=== PATIENT | male | born 2000 | race African-American/Black ===

== ENCOUNTER 2018-06-03 20:39 | Emergency (ER) | payer SELFPAY ==
--- NOTE | 2018-06-03 20:50 | PDOC ---
History of Present Illness - General Stated Complaint: dislocated right knee Time Seen by Provider: 06/03/18 20:48 - History of Present Illness Initial Comments: 06/03/18 20:48 The patient denies chest pain, shortness of breath, headache and dizziness. Denies fever, chills, nausea, vomit, diarrhea and constipation. Denies dysuria, frequency, urgency and hematuria. Past History - Past Medical History Allergies/Adverse Reactions: Allergies Allergy/AdvReac Type Severity Reaction Status Date / Time No Known Allergies Allergy Verified 05/01/11 00:16 Home Medications: Ambulatory Orders Acetaminophen W/ Codeine #3 [Tylenol # 3] 1 combo PO Q4H PRN #14 tablet Asthma: Yes - Immunization History Immunization Up to Date: Yes - Suicide/Smoking/Psychosocial Hx Smoking Status: No Number of Cigarettes Smoked Daily: 0 Review of Systems - Review of Systems Comments:: 06/03/18 20:49 GENERAL/CONSTITUTIONAL: No fever or chills. No weakness. HEAD, EYES, EARS, NOSE AND THROAT: No change in vision. No ear pain or discharge. No sore throat. CARDIOVASCULAR: No chest pain or shortness of breath RESPIRATORY: No cough, wheezing, or hemoptysis. GASTROINTESTINAL: No nausea, vomiting, diarrhea or constipation. GENITOURINARY: No dysuria, frequency, or change in urination. MUSCULOSKELETAL: No joint or muscle swelling or pain. No neck or back pain. SKIN: No rash NEUROLOGIC: No headache, vertigo, loss of consciousness, or change in strength/ sensation. ENDOCRINE: No increased thirst. No abnormal weight change HEMATOLOGIC/LYMPHATIC: No anemia, easy bleeding, or history of blood clots. ALLERGIC/IMMUNOLOGIC: No hives or skin allergy. *Physical Exam - Physical Exam Comments: 06/03/18 20:50 GENERAL: Awake, alert, and fully oriented, in no acute distress HEAD: No signs of trauma, normocephalic, atraumatic EYES: PERRLA, EOMI, sclera anicteric, conjunctiva clear ENT: Auricles normal inspection, hearing grossly normal, nares patent, oropharynx clear without exudates. Moist mucosa NECK: Normal ROM, supple, no lymphadenopathy, JVD, or masses LUNGS: No distress, speaks full sentences, clear to auscultation bilaterally HEART: Regular rate and rhythm, normal S1 and S2, no murmurs, rubs or gallops, peripheral pulses normal and equal bilaterally. ABDOMEN: Soft, nontender, normoactive bowel sounds. No guarding, no rebound. No masses EXTREMITIES: Normal inspection, Normal range of motion, no edema. No clubbing or cyanosis. NEUROLOGICAL: Cranial nerves II through XII grossly intact. Normal speech, normal gait, no focal sensorimotor deficits SKIN: Warm, Dry, normal turgor, no rashes or lesions noted.
[2018-06-03 21:09] VITALS: BMI 27.1
--- NOTE | 2018-06-03 21:18 | PDOC ---
History of Present Illness - General Stated Complaint: dislocated right knee Time Seen by Provider: 06/03/18 20:48 - History of Present Illness Initial Comments: 18yo M with PMH of asthma and intermittent knee pain (since age 9) presenting with knee pain. Patient's mother and aunt are at the bedside providing collateral history. Patient states he was getting off his bed yesterday when he felt severe 10/10 pain in his knee such that he cannot bear weight on it as it hurts too much. He had knee pain for the first time at age 9 when he fell down the stairs. According to his mother, he was medically evaluated and "they couldn 't find anything wrong." Since that time, patient has had three other instances of acute knee pain that would resolve with rest. He has not been evaluate by an orthopedist since age 9. Patient has not taken anything for his pain. He is requesting a note for work. No fevers, chills, chest pain, or shortness of breath. Orthopedist: does not know Past History - Past Medical History Allergies/Adverse Reactions: Allergies Allergy/AdvReac Type Severity Reaction Status Date / Time No Known Allergies Allergy Verified 06/03/18 21:09 Home Medications: Ambulatory Orders Ibuprofen [Motrin -] 600 mg PO Q6H PRN #90 tablet 06/03/18 Asthma: Yes - Immunization History Immunization Up to Date: Yes - Suicide/Smoking/Psychosocial Hx Smoking Status: No Smoking History: Never smoked Have you smoked in the past 12 months: No Number of Cigarettes Smoked Daily: 0 Information on smoking cessation initiated: No Hx Alcohol Use: No Drug/Substance Use Hx: No Review of Systems - Review of Systems Comments:: Constitutional: no fever, no chills HEENT: no vision changes, no dysphagia Cardiovascular: no chest pain, no palpitations Respiratory: no cough, no shortness of breath Gastrointestinal: no abdominal pain, no nausea Genitourinary: no dysuria, no frequency Musculoskeletal: no back pain, +knee pain Skin: no rash, no itching Neurologic: no headache, no weakness *Physical Exam - Vital Signs Last Vital Signs Temp Pulse Resp BP Pulse Ox 98.1 F 70 19 144/78 98 06/03/18 20:39 06/03/18 20:39 06/03/18 20:39 06/03/18 20:39 06/03/18 20:39 - Physical Exam Comments: General: Awake, alert, and fully oriented, in no acute distress Head: No signs of trauma Eyes: EOMI, sclera anicteric ENT: Moist mucus membranes Neck: Normal ROM, supple Lungs: Lungs clear, Normal breath sounds Cardio: Regular rhythm, S1 and S2 present Abdomen: Soft, nontender. No guarding, no rebound, no masses Extremities: Distal pulses present; Right knee swollen and tender to palpation; no deformities noted; no overlying wound or lesion; neurovascularly intact SKIN: Warm, Dry, normal turgor Neurologic: Cranial nerves II through XII grossly intact. Normal speech Medical Decision Making - Medical Decision Making 18yo M with PMH of asthma and intermittent knee pain (since age 9) presenting with knee pain. Knee radiographs Motrin for analgesia Knee immobilizer Likely orthopedic referral 06/03/18 22:07 Knee without acute pathology on radiographs, my impression Patient's mother demanding medical transportation and voices displeasure with being told that our secretary administrative assistant was not immediately present to assist. Knee immobilizer placed Patient discharged with ortho follow-up 06/03/18 22:21 *DC/Admit/Observation/Transfer Diagnosis at time of Disposition: Knee pain, right Qualifiers: Chronicity: acute Qualified Code(s): M25.561 - Pain in right knee - Discharge Dispostion Disposition: HOME Condition at time of disposition: Stable - Prescriptions Prescriptions: Ibuprofen [Motrin -] 600 mg PO Q6H PRN #90 tablet PRN Reason: Pain - Referrals Referrals: Fortunato Hunter MD [Staff Physician] - Nolan Orellana MD [Staff Physician] - - Patient Instructions Printed Discharge Instructions: DI for Knee Pain Additional Instructions: You came to the ED for knee pain. Xray did not show acute pathology. You were given a knee immobilizer. You can bear weight on the knee as tolerated. You can take aleve, motrin, or tylenol for pain. Follow the instructions on the medication bottle. Prescription for motrin has been sent to your pharmacy. Follow-up with an orthopedist this week. Please call the number provided. Your workup is not complete until you do so. Immediate medical attention is required if you have: numbness in the genital or rectal area, loss of bowel or bladder control, difficulty with urination; fever , unexplained weight loss, or other signs of illness or infection. If you think you are having an emergency, call for emergency medical - Post Discharge Activity Forms/Work/School Notes: Back to Work
[2018-06-03] MEDS ORDERED: IBUPROFEN 400 MG TABLET (FP) PO ONE ×2 (21:20→21:55)
--- NOTE | 2018-06-03 21:52 | PDOC ---
Documentation entered by Billie Treviño SCRIBE, acting as scribe for Warner Carrillo MD. Attending Attestation - Resident Resident Name: Mindy Curran - ED Attending Attestation I have performed the following: I have examined & evaluated the patient, The case was reviewed & discussed with the resident, I agree w/resident's findings & plan, Exceptions are as noted - HPI HPI: 06/03/18 21:11 The patient is a 18 year old male with no significant PMH who presents to the emergency department with right knee pain since yesterday. Patient states he was trying to stand up from his chair yesterday when he felt pain to the right knee that has been persistent until today. Patient has been limping yesterday and today since the onset of this right knee pain. Denies any recent trauma or falls. Patient took advil at home with minimal relief of the pain and swelling. As per the mother, an aunt who works at an orthopedist clinic told the patient he should come to the ER. Patient states he has had right knee trauma at age 9 from a fall and has had right knee pains every once in a while. Patient had an XR and MRI done at the time and were reportedly normal per patients mom. Patient states these right knee pain resolves on its own after rest. Denies any numbness/tingling/wekness. No other complaints Allergies: NKA Past surgical history: None reported. Social history: No reported alcohol, drug or cigarette use. - Physicial Exam PE: 06/03/18 21:33 General: No acute distress MSK: R knee - mild effusion/swelling over R knee cap, mild ttp able to rom with mild discomfort, no deformities or obvious disoclations, no eccymosis, stepoffs. DP symmetric b/l, sensation symmetric bl. quadricep function intact - Medical Decision Making 06/03/18 21:34 Atraumatic R knee pain no signs of dislcoation or fracture will obtain xray to r/o acute pathology will place in a knee immobilizer with ortho fu motrin for pain Warner Carrillo MD: This documentation has been prepared by the [employer] Daisy, SCRIBE, under my direction and personally reviewed by me in its entirety. I confirm that the documentation accurately reflects all work, treatment, procedures, and medical decision making performed by me.
[2018-06-03 22:31] VITALS: BP 140/80; PULSE 68; TEMP 98
== END 2018-06-03 22:46 | disposition home or self-care (01) ==
LOC: JER 20:39
PROC: 2W3QXYZ Immobilization of Right Lower Leg using Other Device (ICD-10-PCS; principal; 2018-06-03)
DX: M25.561 Pain in right knee (principal)
CPT/HCPCS: 73562-TC-RT-FY; 99282-25

== ENCOUNTER 2024-07-09 16:35 | Emergency (ER) | payer OTHER ==
[2024-07-09 16:42] VITALS: BP 124/86; PULSE 68; RESP 20; TEMP 98.1; BMI 26.6
[2024-07-09] MEDS ORDERED: BACITRACIN ZINC 15 GM TUBE TOPICAL OINTMENT ONE (17:25)
[2024-07-09] MEDS: BACITRACIN ZINC 15 GM TUBE TOPICAL OINTMENT TP ONE (17:28)
[2024-07-09] MEDS ORDERED: IBUPROFEN 400 MG TABLET (FP) PO ONE (17:42)
[2024-07-09] MEDS: IBUPROFEN 400 MG TABLET (FP) PO ONE (17:55)
== END 2024-07-09 19:29 | disposition home or self-care (01) ==
LOC: JERFT 16:35
DX: S46.912A Strain of unspecified muscle, fascia and tendon at shoulder and upper arm level, left arm, initial encounter (principal); S30.810A Abrasion of lower back and pelvis, initial encounter; V43.62XA Car passenger injured in collision with other type car in traffic accident, initial encounter; Y92.410 Unspecified street and highway as the place of occurrence of the external cause
CPT/HCPCS: 72100-TC-FY; 99283-25